=== PATIENT | male | born 1970 | race Caucasian/White ===

== ENCOUNTER 2016-12-30 07:12 | Emergency (ER) | payer OTHER ==
[~2016-12-30] VITALS: Ht 172.7 cm; Wt 69.9 kg
[2016-12-30] MEDS ORDERED: NEULASTA6 MG/0.6 M SC (07:31)
[2016-12-30] MEDS ORDERED: ACYCLOVIR400 M1 PO (07:32)
[2016-12-30] MEDS ORDERED: ALLOPURINOL300 M1 PO (07:32)
[2016-12-30] MEDS ORDERED: ONDANSETRON HCL4 MG PO (07:32)
--- NOTE | 2016-12-30 07:48 | ED GENERAL ADULT ---
History of Present Illness General Chief Complaint: General Adult Stated Complaint: CHILLS Source: patient, family Exam Limitations: no limitations Vital Signs & Intake/Output Vital Signs & Intake/Output Vital Signs Date Time Temp Pulse Resp B/P Pulse O2 O2 Flow FiO2 Ox Delivery Rate 12/30 1111 99.5 104 20 105/72 98 Room Air 12/30 0942 100.0 92 18 124/65 98 Room Air ED Intake and Output 12/31 0000 12/30 1200 Intake Total Output Total Balance Patient 154 lb Weight Allergies Coded Allergies: No Known Allergies (12/30/16) Reconcile Medications Acyclovir 400 MG TABLET 1 TAB PO BID PREVENTIVE (Reported) Allopurinol 300 MG TABLET 1 TAB PO DAILY URIC ACID (Reported) Levofloxacin (Levaquin) 500 MG TABLET 1 TAB PO DAILY IFN Ondansetron HCl 4 MG TABLET 1 TAB PO Q6P PRN NAUSEA (Reported) Pegfilgrastim (Neulasta) 6 MG/0.6 ML SYRINGE 6 MG SC SI LYMPHOMA OF SMALL BOWEL (Reported) MEDICATE 24 HRS AFTER CHEMO, RECEIVES CHEMO EVERY 3 WEEKS Triage Note: PT TO ED WITH C/O LOW GRADE FEVER OF 100.8, CHILLS, SWEATS STARTING YESTERDAY. PT CURRENTLY ON CHEMO FOR LYMPHOMA. PT DENIES SORE THROAT, "PULSING IN LEFT EAR, WHICH SEEMS POSITIONAL". Triage Nurses Notes Reviewed? yes Onset: Abrupt Duration: day(s): Timing: recent history HPI: 12/30/16 7:53 AM 46-year-old male presents to the emergency department for fever and chills and lightheadedness. He also has a pulsatile sensation in his left ear. He was drenched in sweat earlier this morning and admits to palpitations. 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 This presented as a bowel obstruction. He is currently receiving chemotherapy with several agents including Cytoxan and Adriamycin. He gets these every 3 weeks for 5 days. He is currently on treatment 3 of 6. These have been administered through a left PICC line. He is recently had a PET scan which showed severe evidence of disease in the entire small bowel but no evidence of metastases. He also treated with intrathecal methotrexate as a preventative measure. Now he presents with fever and chills sweating palpitations and pulsatile tinnitus in his left ear. His oncologist is Dr. James Christianson in [place]. The onset of the symptoms were abrupt, the duration has been approximately 48 hours, the severity is significant as his symptoms required him to come to the emergency department for care. He has no other past medical history. He denies any significant past surgical history. He denies any drug allergies. Past History Travel History Traveled to [place] past 21 day No Medical History Any Pertinent Medical History? 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 No Review of Systems Review of Systems Constitutional: Reports: chills, diaphoresis, fever. EENTM: Reports: no symptoms. Respiratory: Denies: cough, short of breath. Cardiovascular: Denies: chest pain. GI: Denies: abdominal pain. Genitourinary: Reports: no symptoms. Musculoskeletal: Reports: no symptoms. Skin: Reports: no symptoms. Neurological/Psychological: Reports: no symptoms. Hematologic/Endocrine: Reports: no symptoms. Physical Exam Physical Exam General Appearance: alert, awake, anxious, mild distress Head: atraumatic, normal appearance Eyes: Bilateral: normal appearance, PERRL, EOMI. Ears, Nose, Throat: tympanic membranes normal bilaterally Neck: normal inspection, supple, full range of motion Respiratory: normal breath sounds, chest non-tender, no respiratory distress Cardiovascular: regular rate/rhythm Peripheral Pulses: 4+ radial (R), 4+ radial (L) Gastrointestinal: soft, non-tender Back: normal range of motion Extremities: no edema Neurologic/Psych: no motor/sensory deficits, awake, alert, oriented x 3 Skin: intact, normal color, warm/dry Comments: No PICC line currently Core Measures ACS in differential dx? No CVA/TIA Diagnosis: No Severe Sepsis Present: No Septic Shock Present: No Progress Differential Diagnoses I considered the following diagnoses in my evaluation of the patient: [Viral syndrome, bacteremia, endocarditis, cellulitis,] Plan of Care: Orders Procedure Date/time Status RAPID VIRAL INFLUENZA A 12/30 0752 Complete TROPONIN LEVEL 12/30 0752 Complete BLOOD CULTURE 12/30 0749 Active COMPREHENSIVE METABOLIC PANEL 12/30 0749 Complete CBC WITHOUT DIFFERENTIAL 12/30 0749 Complete EKG 12/30 0749 Active Current Medications Sig/Yovani Start time Last Medication Dose Stop Time Status Admin Sodium Chloride 1,000 ML ONCE ONE 12/30 0800 CAN (Normal Saline 0.9%) 12/30 1439 Laboratory Tests 12/30/16 0810: Troponin I < 0.01 12/30/16 0810: Anion Gap 10, Estimated GFR > 60, BUN/Creatinine Ratio 11.0, Glucose 105 H, Calcium 8.7, Total Bilirubin 0.5, AST 31, ALT 58, Alkaline Phosphatase 136 H, Total Protein 6.0 L, Albumin 3.6, Globulin 2.4, Albumin/Globulin Ratio 1.5, CBC w Diff MAN DIFF ORDERED, RBC 3.20 L, MCV 78.7 L, MCH 26.6 L, RDW 18.5 H, MPV 8.7, Segmented Neutrophils 44, Band Neutrophils 12 H, Lymphocytes 15 L, Monocytes 11 H, Metamyelocytes 11 H, Myelocytes 9 H, Nucleated RBCs 2 H, Polychromasia 1+, Hypochromic-Microcytic 1+, Basophilic Stippling SLIGHT, Anisocytosis 1+, Microcytic Cells 1+, Stomatocytes RARE, PUBS MCHC 33.8, Fld Total RBCs Counted 100 Microbiology 12/30 0850 BLOOD: Blood Culture - RECD 12/30 08 BLOOD: Blood Culture - RECD Initial ED EKG: NSR Departure Departure Disposition: HOME OR SELF CARE Condition: Stable Clinical Impression Primary Impression: Fever Secondary Impressions: Intestinal lymphoma Referrals: PATIENT HAS NO PRIMARY CARE DR (PCP/Family) Departure Forms: Customer Survey General Discharge Information Prescriptions: Current Visit Scripts Levofloxacin (Levaquin) 1 TAB PO DAILY #7 TAB Comments 12/30/16 11 am The patient was seen and evaluated by Dr. Palomino. I discussed the case and all lab results with the patient's oncologist Dr. Christianson. We are in agreement with the plan to start Levaquin 500 daily for 7 days. The patient will follow-up with Dr. Christianson tomorrow. Labs are negative for leukocytosis. White blood cell count is normal. Chest x- ray is negative. Ultrasound is negative. Blood cultures were sent. The patient will return immediately if he has a fever of 101 or feels worse in any way. Critical Care Note Critical Care Note Critical Care Time: non-applicable
[2016-12-30 08:26] LABS: HEMATOCRIT 25.1 % (42-52); MEAN CORPUSCULAR HGB 26.6 PG (27.0-31.0); MEAN CORPUSCULAR HGB CONC 33.8 G/DL (33.0-37.0); MEAN CORPUSCULAR VOLUME 78.7 FL (80.0-94.0); MEAN PLATELET VOLUME 8.7 FL (7.4-10.4); PLATELET COUNT 91 /CUMM (130-400); RBC DISTRIBUTION WIDTH 18.5 % (11.5-14.5); WHITE BLOOD CELL COUNT 5.5 /CUMM (4.8-10.8)
--- NOTE | 2016-12-30 08:47 | RADIOLOGY REPORT ---
EXAMINATION: XR CHEST, 2 VIEWS CLINICAL INFORMATION: Fever. Chemotherapy. Rule out pneumonia. COMPARISON: 10/31/2016 TECHNIQUE: PA and lateral views of the chest were obtained. FINDINGS: Lungs are clear. No consolidation, pneumothorax, or pleural effusion. Cardiac and mediastinal contours are normal. Pulmonary vasculature is unremarkable. Trachea is midline. Osseous structures are unremarkable. IMPRESSION: Normal chest radiographs.
--- NOTE | 2016-12-30 10:18 | ECHOCARDIOGRAM REPORT ---
JEAN-PAUL CASTRO Age: 46 : 1970 Gender: M Exam Date: 12/30/2016 09:09 Exam Location: ER Ht (in): 68 Wt (lb): 154 BSA: 1.84 BP: 144 / 81 Ordering Physician: XIANG PINEDA DO Referring Physician: XIANG PINEDA DO Technologist: Santo Reyna NAIDA Room Number: 1 Indications: LIGHTHEADEDNESS Rhythm: Technical Quality: Good FINDINGS Left Ventricle Normal global left ventricular size, wall thickness, systolic function with no obvious regional wall motion abnormalities. Left ventricular ejection fraction is estimated at 65 %. Normal left ventricular diastolic filling pattern for age. Right Ventricle Normal right ventricular size and function. Right Atrium Normal right atrial size. Left Atrium Normal left atrial size. Mitral Valve Structurally normal mitral valve. Trace to mild mitral regurgitation. No mitral stenosis. Aortic Valve Structurally normal trileaflet aortic valve. No aortic stenosis. Tricuspid Valve Structurally normal tricuspid valve. Trace tricuspid regurgitation. Unable to estimate the right ventricular systolic pressure. Pulmonic Valve Pulmonic valve not well visualized, grossly normal. Pericardium No pericardial effusion. Great Vessels Normal size aortic root. CONCLUSIONS Normal global left ventricular size, wall thickness, systolic function with no obvious regional wall motion abnormalities. Left ventricular ejection fraction is estimated at 65 %. Normal left ventricular diastolic filling pattern for age. Trace to mild mitral regurgitation. Normal right ventricular size and function. No pericardial effusion. Lucian Sanchez M.D. (Electronically Signed) Final Date: 30 December 2016 10:17 MEASUREMENTS (Male / Female) Normal Values 2D ECHO LV Diastolic Diameter PLAX 4.7 cm 4.2 - 5.9 / 3.9 - 5.3 cm LV Systolic Diameter PLAX 3.0 cm 2.1 - 4.0 cm LV Fractional Shortening PLAX 36.2 % 25 - 46 % LV Ejection Fraction 2D Teich 65.8 % IVS Diastolic Thickness 1.0 cm LVPW Diastolic Thickness 0.9 cm LV Relative Wall Thickness 0.4 RV Internal Dim ED PLAX 3.6 cm 1.9 - 3.8 cm LVOT Diameter 2.1 cm Aortic Root Diameter 3.0 cm LA Systolic Diameter LX 3.2 cm 3.0 - 4.0 / 2.7 - 3.8 cm LA Volume 35.0 cm 18 - 58 / 22 - 52 cm DOPPLER AV Peak Velocity 186.0 cm/s AV Peak Gradient 13.8 mmHg AV Mean Velocity 129.0 cm/s AV Mean Gradient 8.0 mmHg AV Velocity Time Integral 33.1 cm LVOT Peak Velocity 119.0 cm/s LVOT Peak Gradient 5.7 mmHg LVOT Mean Velocity 79.2 cm/s LVOT Mean Gradient 3.0 mmHg LVOT Velocity Time Integral 24.2 cm LVOT Stroke Volume 83.8 cm AV Area Cont Eq vti 2.5 cm AV Area Cont Eq pk 2.2 cm MV Peak Velocity 84.1 cm/s MV Peak Gradient 2.8 mmHg MV Mean Velocity 60.8 cm/s MV Mean Gradient 2.0 mmHg Mitral E Point Velocity 82.9 cm/s Mitral A Point Velocity 78.5 cm/s Mitral E to A Ratio 1.1 MV PHT Velocity 92.3 cm/s MV Deceleration [place] 251.0 cm/s MV Pressure Half Time 110.3 ms MV Area PHT 2.0 cm MV Deceleration Time 282.0 ms TR Peak Velocity 265.0 cm/s TR Peak Gradient 28.1 mmHg Right Atrial Pressure 5.0 mmHg Pulmonary Artery Systolic Pressu 33.1 mmHg Right Ventricular Systolic Press 33.1 mmHg PV Peak Velocity 150.0 cm/s PV Peak Gradient 9.0 mmHg PV Mean Velocity 102.0 cm/s PV Mean Gradient 5.0 mmHg PV Velocity Time Integral 30.4 cm LV E' Lateral Velocity 16.4 cm/s Mitral E to LV E' Lateral Ratio 5.1 LV E' Septal Velocity 8.8 cm/s Mitral E to LV E' Septal Ratio 9.5
--- NOTE | 2016-12-30 11:00 | Cons- Cardiology ---
General Information and HPI Consulting Request Date of Consult: 12/30/16 Requested By: Dr. 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 He has been receiving chemotherapy which include Cytoxan and Adriamycin for a PICC line. This was just this removed a few days ago. He states that this morning he woke up with a drenching sweat, palpitations, along with fever. He has been experiencing intermittent episodes of pulsatile tinnitus in his left ear. He became concerned and presented to the emergency room for evaluation. He has been receiving chemotherapy for 5 days every 3 weeks. He is on his third out of 6 treatments. Recent PET scan demonstrated no metastases but extensive bowel disease. He is also received intrathecal methotrexate as a preventative measure. From the cardiac standpoint he has been told of a murmur in the past. He states that he has had an echo at [facility] where he receives his chemotherapy and his ejection fraction was reportedly normal. He denies history of chest pain shortness of breath PND or orthopnea. He states he used to exercise and his average heart rate was in the low 60s but when he took his pulse at home and was in the low 100s. Allergies/Medications Allergies: Coded Allergies: No Known Allergies (12/30/16) Home Med List: Acyclovir 400 MG TABLET 1 TAB PO BID PREVENTIVE (Reported) Allopurinol 300 MG TABLET 1 TAB PO DAILY URIC ACID (Reported) Ondansetron HCl 4 MG TABLET 1 TAB PO Q6P PRN NAUSEA (Reported) Pegfilgrastim (Neulasta) 6 MG/0.6 ML SYRINGE 6 MG SC SI LYMPHOMA OF SMALL BOWEL (Reported) MEDICATE 24 HRS AFTER CHEMO, RECEIVES CHEMO EVERY 3 WEEKS Current Medications: Current Medications Sig/Yovani Start time Last Medication Dose Route Stop Time Status Admin Sodium Chloride 1,000 ML ONCE ONE 12/30 0800 CAN IV 12/30 2655 Review of Systems Review of Systems: Eyes no blurred or double vision Ears pulsatile tinnitus in the left ear Nose and throat no recurrent sinusitis Lungs per history of present illness Heart per history of present illness Abdomen as per history of present illness Musculoskeletal occasional muscle and joint pains Psych no anxiety or depression Neuro without recurrent headache or seizures Endocrine no heat or cold intolerance Past History Travel History Traveled to [place] past 21 day No Medical History Neurological: NONE EENT: NONE Cardiovascular: NONE Respiratory: NONE Gastrointestinal: NONE Hepatic: NONE Renal: NONE Musculoskeletal: NONE Psychiatric: NONE Endocrine: NONE Blood Disorders: NONE Cancer(s): non-hodgkin lymphoma, OF SMALL BOWELS 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 Surgical History Surgical History: 1 (no prior abdominal surgery) Psychosocial History ETOH Use: denies use Illicit Drug Use: denies illicit drug use Exam & Diagnostic Data Vital Signs and I&O Vital Signs Date Time Temp Pulse Resp B/P Pulse O2 O2 Flow FiO2 Ox Delivery Rate 12/30 0942 100.0 92 18 124/65 98 Room Air 12/30 0733 Room Air Room Air 12/30 0718 97.8 111 20 144/81 99 Room Air Room Air Intake & Output 12/30 1600 12/30 0800 12/30 0000 12/29 1600 12/29 0800 12/29 0000 Intake Total Output Total Balance Patient 154 lb Weight Physical Exam: Patient is a well-developed thin male appearing in no acute distress HEENT is unremarkable Neck is supple there is no JVD Lungs are clear Heart regular rhythm S1 and S2 are normal no gallops or rubs 1/6 systolic ejection murmur at the left sternal border Abdomen bowel sounds positive Extremities without edema Labs/Vignesh Results: Laboratory Tests 12/30 12/30 0810 0810 Chemistry Sodium (137 - 145 mmol/L) 137 Potassium (3.5 - 5.1 mmol/L) 4.0 Chloride (98 - 107 mmol/L) 97 L Carbon Dioxide (22 - 30 mmol/L) 29 Anion Gap (5 - 16) 10 BUN (9 - 20 mg/dL) 11 Creatinine (0.7 - 1.2 mg/dL) 1.0 Estimated GFR (>60 ml/min) > 60 BUN/Creatinine Ratio (7 - 25 %) 11.0 Glucose (65 - 99 mg/dL) 105 H Calcium (8.4 - 10.2 mg/dL) 8.7 Total Bilirubin (0.2 - 1.3 mg/dL) 0.5 AST (17 - 59 U/L) 31 ALT (21 - 72 U/L) 58 Alkaline Phosphatase (< 127 U/L) 136 H Troponin I (<0.11 ng/ml) < 0.01 Total Protein (6.3 - 8.2 g/dL) 6.0 L Albumin (3.5 - 5.0 g/dL) 3.6 Globulin (1.9 - 4.2 gm/dL) 2.4 Albumin/Globulin Ratio (1.1 - 2.2 %) 1.5 Hematology CBC w Diff MAN DIFF ORDERED WBC (4.8 - 10.8 /CUMM) 5.5 RBC (4.70 - 6.10 /CUMM) 3.20 L Hgb (14.0 - 18.0 G/DL) 8.5 L Hct (42 - 52 %) 25.1 L MCV (80.0 - 94.0 FL) 78.7 L MCH (27.0 - 31.0 PG) 26.6 L RDW (11.5 - 14.5 %) 18.5 H Plt Count (130 - 400 /CUMM) 91 L MPV (7.4 - 10.4 FL) 8.7 Segmented Neutrophils (42.2 - 75.2 %) 44 Band Neutrophils (0.0 - 5.0 %) 12 H Lymphocytes (20.5 - 51.1 %) 15 L Monocytes (1.7 - 9.3 %) 11 H Metamyelocytes (0.0 - 1.0 %) 11 H Myelocytes (0 - 0 %) 9 H Nucleated RBCs (0.0 - 0.0 /100WBC) 2 H Polychromasia 1+ Hypochromic-Microcytic 1+ Basophilic Stippling SLIGHT Anisocytosis 1+ Microcytic Cells 1+ Stomatocytes RARE PUBS MCHC (33.0 - 37.0 G/DL) 33.8 Other Body Source Fld Total RBCs Counted (%) 100 Diagnostic Data EKG Results EKG sinus rhythm without acute changes CXR Results IMPRESSION: Normal chest radiograp Other Results Echocardiogram CONCLUSIONS Normal global left ventricular size, wall thickness, systolic function with no obvious regional wall motion abnormalities. Left ventricular ejection fraction is estimated at 65 %. Normal left ventricular diastolic filling pattern for age. Trace to mild mitral regurgitation. Normal right ventricular size and function. No pericardial effusion. Lucian Sanchez M.D. Assessment/Plan Assessment/Plan 1. Acute fever chills and diaphoresis possibly of viral etiology but a bacterial etiology cannot be ruled out given the fact that he had a recent PICC line removed. Echocardiogram demonstrated no evidence for endocarditis 2. Mild mitral regurgitation by echocardiogram 3. Intestinal large B-cell lymphoma undergoing chemotherapy Recommendations 1. Blood cultures have been obtained and are pending. If positive and no obvious source of infection is found would consider SWATI for further evaluation 2. Per his oncologist he will be discharged on Levaquin 3. He is stable from the cardiac standpoint for discharge Thank you for allowing [facility] to participate in the care of your patient. Consult Acknowledgment - Thank you for your consult request.
[2016-12-30] MEDS ORDERED: LEVAQUIN500 M1 PO (11:09)
[2016-12-30 11:11] VITALS: BP 105/72
== END 2016-12-30 11:17 ==
LOC: ERH 07:12
PROVIDERS: Emergency Medicine
DX: R50.9 Fever, unspecified (principal); C85.99 Non-Hodgkin lymphoma, unspecified, extranodal and solid organ sites; R00.2 Palpitations
CPT/HCPCS: 87040; 87804; 87804-59; 93005; 93010; 93306